=== PATIENT | male | born 1955 | race Caucasian/White ===

== ENCOUNTER 2016-05-29 14:50 | Inpatient (IN) | payer MEDICAID ==
[~2016-05-29] VITALS: Ht 180.3 cm; Wt 73.0 kg
[2016-05-29] VITALS (244 sets, daily range): BP systolic 100–122; BP diastolic 75–99; PULSE 89–118; TEMP 96.7–97; O2SAT 90–100
[~2016-05-29 14:50] MED LIST: 00186-0372-20 IH; AMOXICILLIN 8751 TAB PO; ASPIRIN 81M81 MG/TA2 PO; ASPIRIN E.C. 8181 MG PO; COLACE 100100 MG/CAP PO; CORDARONE200 MG/TAB PO; COREG 3.123.125 MG/T PO; DULCOLAX10 MG RC; FLOVENT 110MCG7.9 GM IH; IPRATROPIUM BROM3 M1 IH; LIPITOR20 MG PO; NICODERM C21 MG/PATC TOP; PERFOROMIS20 MCG/2 M IH; PLAVIX 75MG TAB75 MG PO; PREDNISONE20 MG PO; PRINIVIL10 MG PO; PROAIR HFA0.09 MG/AC IH; PROVENTIL0.09 MG/A1 IH; RT SPIRIVA18 MCG IH; SENOKOT8.6 MG PO; THEO-DUR 3300 MG/TAB PO; TYLENOL 325MG325 MG PO; VENTOLIN0.09 MG IH; XANAX 0.5MG0.5 MG PO; ZESTRIL 5MG5 MG PO; [UNRECOGNIZED DRUG - OTHER]
[2016-05-29 15:15] LABS: BASO # 0.1 (0.0-0.2); BASO % 0.3 % (0.0-2.0); GRAN % 87.2 % (42.2-75.2); HEMATOCRIT 46.5 % (42.0-52.0); HEMOGLOBIN 15.4 g/dl (13.5-18.0); LYMPH # 0.7 (1.2-3.4); LYMPH % 3.7 % (20.0-51.0); MEAN CELL VOLUME 93 fl (80.0-100.0); MEAN CORPUSCULAR HEMOGLOBIN 31 pg (27.0-31.0); MEAN CORPUSCULAR HGB CONC 33 g/dl (33.0-37.0); MEAN PLATELET VOLUME 10.2 fl (7.4-10.4); MONO # 1.6 (0.1-0.6); MONO % 8.3 % (1.7-9.3); PLATELET COUNT 192 K/mm3 (130-400); RED BLOOD COUNT 5.01 M/mm3 (4.20-5.60); REDCELL DISTRIBUTION WIDTH-CV 13.2 % (11.5-14.5); WHITE BLOOD COUNT 19.5 K/mm3 (4.8-10.8)
[2016-05-29 15:20] LABS: INR 1.2 (0.8-3.0); PROTHROMBIN TIME 13.3 SECONDS (9.7-12.8)
[2016-05-29 15:22] LABS: PARTIAL THROMBOPLASTIN TIME 36.8 SECONDS (26.0-37.0)
[2016-05-29 15:29] LABS: ADJUSTED CALCIUM 8.9 mg/dL (8.4-10.2); ALANINE AMINOTRANSFERASE 32 U/L (21-72); ALBUMIN 4.8 gm/dL (3.5-5.0); ALKALINE PHOSPHATASE 84 U/L (50-136); ANION GAP 15 mmol/L (7-16); BILIRUBIN,TOTAL 1.4 mg/dL (0.0-1.0); BLOOD UREA NITROGEN 8 mg/dL (9-20); CALCIUM 9.5 mg/dL (8.4-10.2); CARBON DIOXIDE 30 mmol/L (22-30); CHLORIDE 96 mmol/L (98-107); GLUCOSE 188 mg/dL (74-106); POTASSIUM 4.1 mmol/L (3.4-5.0); SODIUM 140 mmol/L (137-145); TOTAL PROTEIN 7.9 gm/dL (6.4-8.2)
[2016-05-29 15:39] LABS: B-TYPE NATRIURETIC PEPTIDE 840 pg/mL (0-125); TROPONIN-I < 0.012 ng/mL (0.000-0.034)
[2016-05-29] MEDS ORDERED: ZOLOFT 50MG50 MG PO (15:42)
[2016-05-29] MEDS ORDERED: PREDNISONE20 MG PO (15:46)
[2016-05-29] MEDS ORDERED: DOXYCYCLINE 10100 MG PO (15:47)
[2016-05-29 16:27] LABS: ARTERIAL BLD GAS O2 SATURATION 97.2 % (92-100); ARTERIAL BLD GAS TCO2 CT 31.5; ARTERIAL BLOOD GAS BASE EXCESS -1.8 (-2-2); ARTERIAL BLOOD GAS HCO3 29.1 meq/L (22-26); ARTERIAL BLOOD GAS pH 7.18 (7.35-7.45); OXYHEMOGLOBIN 95.4 %
[2016-05-29 16:28] LABS: ATS? YES
[2016-05-29 16:45] LABS: ARTERIAL BLD GAS O2 SATURATION 98.9 % (92-100); ARTERIAL BLD GAS TCO2 CT 37.5; ARTERIAL BLOOD GAS BASE EXCESS -0.5 (-2-2); ARTERIAL BLOOD GAS HCO3 33.9 meq/L (22-26); OXYHEMOGLOBIN 97.1 %
[2016-05-29 16:46] LABS: ARTERIAL BLOOD GAS pH 7.08 (7.35-7.45)
[2016-05-29 16:47] LABS: ARTERIAL BLOOD GAS PHT 7.08 C (7.35-7.45); ARTERIAL BLOOD GAS PO2 234.9 mmHg (80-100); ARTERIAL BLOOD GAS PO2T 234.9 (80-100); ATS? YES
[2016-05-29 19:06] LABS: ARTERIAL BLOOD GAS BASE EXCESS 1.1 (-2-2); ARTERIAL BLOOD GAS HCO3 29.1 meq/L (22-26); OXYHEMOGLOBIN 96.4 %
[2016-05-29 19:07] LABS: ALLEN TEST YES; ALLENS TEST RESULT PASS; ATS? YES
[2016-05-29] MEDS ORDERED: ALBUTEROL0.83 MG/ML IH (20:16)
[2016-05-29] MEDS ORDERED: XANAX 1MG1 MG PO (20:20)
[2016-05-29 22:15] LABS: ARTERIAL BLD GAS O2 SATURATION 98.1 % (92-100); ARTERIAL BLD GAS TCO2 CT 29.1; ARTERIAL BLOOD GAS BASE EXCESS -0.4 (-2-2); ARTERIAL BLOOD GAS HCO3 27.3 meq/L (22-26); OXYHEMOGLOBIN 96.8 %
[2016-05-29 22:17] LABS: ALLEN TEST YES; ALLENS TEST RESULT PASS; ATS? YES
[2016-05-30] VITALS (1049 sets, daily range): BP systolic 82–102; BP diastolic 58–73; PULSE 66–91; TEMP 97.5–98.6; O2SAT 84–100
[2016-05-30 05:09] LABS: ARTERIAL BLD GAS O2 SATURATION 97.2 % (92-100); ARTERIAL BLD GAS TCO2 CT 29.9; ARTERIAL BLOOD GAS BASE EXCESS 0.9 (-2-2); ARTERIAL BLOOD GAS HCO3 28.2 meq/L (22-26); ARTERIAL BLOOD GAS PHT 7.31 C (7.35-7.45); ARTERIAL BLOOD GAS PO2 103.7 mmHg (80-100); ARTERIAL BLOOD GAS PO2T 103.7 (80-100); ARTERIAL BLOOD GAS pH 7.31 (7.35-7.45); OXYHEMOGLOBIN 96.5 %
[2016-05-30 05:11] LABS: ALLEN TEST YES; ALLENS TEST RESULT PASS; ATS? YES
[2016-05-30 07:01] LABS: BASO % 0.1 % (0.0-2.0); GRAN # 7.3 (1.4-6.5); GRAN % 91.4 % (42.2-75.2); LYMPH # 0.4 (1.2-3.4); LYMPH % 5.4 % (20.0-51.0); MEAN CELL VOLUME 95 fl (80.0-100.0); MEAN CORPUSCULAR HEMOGLOBIN 30 pg (27.0-31.0); MEAN CORPUSCULAR HGB CONC 32 g/dl (33.0-37.0); MEAN PLATELET VOLUME 9.9 fl (7.4-10.4); MONO # 0.2 (0.1-0.6); MONO % 2.7 % (1.7-9.3); PLATELET COUNT 131 K/mm3 (130-400); RED BLOOD COUNT 3.91 M/mm3 (4.20-5.60); REDCELL DISTRIBUTION WIDTH-CV 13.3 % (11.5-14.5)
[2016-05-30 07:06] LABS: HEMOGLOBIN 11.8 g/dl (13.5-18.0)
[2016-05-30 07:07] LABS: CALCIUM 8.4 mg/dL (8.4-10.2); CREATININE, serum 0.45 mg/dL (0.66-1.25); POTASSIUM 4.2 mmol/L (3.4-5.0)
[2016-05-30 12:41] LABS: ADD PATHOLOGY DIFF REVIEW NO
[2016-05-30 12:43] LABS: BAND 15 % (0-10); NEUTROPHILS 81 % (42.0-75.2); PLATELET ESTIMATE NORMAL (NORMAL); TOTAL CELLS COUNTED 100
[2016-05-31] VITALS (1017 sets, daily range): BP systolic 100–116; BP diastolic 57–87; PULSE 84–144; TEMP 97–98.6; O2SAT 86–100
[2016-05-31 05:08] LABS: ARTERIAL BLD GAS TCO2 CT 29.8; ARTERIAL BLOOD GAS BASE EXCESS 3.2 (-2-2); ARTERIAL BLOOD GAS HCO3 28.4 meq/L (22-26); ARTERIAL BLOOD GAS PHT 7.41 C (7.35-7.45); ARTERIAL BLOOD GAS PO2 96.6 mmHg (80-100); ARTERIAL BLOOD GAS PO2T 96.6 (80-100); ARTERIAL BLOOD GAS pH 7.41 (7.35-7.45); OXYHEMOGLOBIN 96.4 %
[2016-05-31 05:09] LABS: ALLEN TEST YES; ALLENS TEST RESULT PASS; ATS? YES
[2016-05-31 06:30] LABS: GRAN # 8.2 (1.4-6.5); GRAN % 92.3 % (42.2-75.2); HEMOGLOBIN 12.4 g/dl (13.5-18.0); LYMPH # 0.3 (1.2-3.4); LYMPH % 3.8 % (20.0-51.0); MEAN CELL VOLUME 93 fl (80.0-100.0); MEAN CORPUSCULAR HEMOGLOBIN 30 pg (27.0-31.0); MEAN CORPUSCULAR HGB CONC 33 g/dl (33.0-37.0); MONO # 0.3 (0.1-0.6); MONO % 3.3 % (1.7-9.3); PLATELET COUNT 142 K/mm3 (130-400); RED BLOOD COUNT 4.11 M/mm3 (4.20-5.60); REDCELL DISTRIBUTION WIDTH-CV 13.2 % (11.5-14.5); WHITE BLOOD COUNT 8.8 K/mm3 (4.8-10.8)
[2016-05-31 06:40] LABS: CALCIUM 8.6 mg/dL (8.4-10.2); CREATININE, serum 0.44 mg/dL (0.66-1.25); POTASSIUM 3.8 mmol/L (3.4-5.0)
[2016-06-01] VITALS (665 sets, daily range): BP systolic 98–138; BP diastolic 55–94; PULSE 66–90; TEMP 97.8–98.5; O2SAT 87–100
[2016-06-01 05:42] LABS: GRAN % 91.4 % (42.2-75.2); LYMPH # 0.3 (1.2-3.4); LYMPH % 4.4 % (20.0-51.0); MEAN CELL VOLUME 92 fl (80.0-100.0); MEAN CORPUSCULAR HGB CONC 33 g/dl (33.0-37.0); MEAN PLATELET VOLUME 9.8 fl (7.4-10.4); MONO # 0.3 (0.1-0.6); MONO % 3.8 % (1.7-9.3); PLATELET COUNT 133 K/mm3 (130-400); RED BLOOD COUNT 3.89 M/mm3 (4.20-5.60); REDCELL DISTRIBUTION WIDTH-CV 13.2 % (11.5-14.5); WHITE BLOOD COUNT 7.7 K/mm3 (4.8-10.8)
[2016-06-01 05:43] LABS: HEMATOCRIT 35.7 % (42.0-52.0); HEMOGLOBIN 11.9 g/dl (13.5-18.0); MEAN CORPUSCULAR HEMOGLOBIN 31 pg (27.0-31.0)
[2016-06-01 05:55] LABS: CALCIUM 8.3 mg/dL (8.4-10.2); CREATININE, serum 0.43 mg/dL (0.66-1.25); POTASSIUM 3.7 mmol/L (3.4-5.0)
[2016-06-02 04:33] VITALS: BP 91/65; PULSE 63; TEMP 98.7
[2016-06-02 07:32] VITALS: BP 96/64; PULSE 62; TEMP 97.5
[2016-06-02 08:26] LABS: ALBUMIN 2.9 gm/dL (3.5-5.0); BILIRUBIN,TOTAL 0.5 mg/dL (0.0-1.0); TOTAL PROTEIN 5.1 gm/dL (6.4-8.2)
[2016-06-02 08:41] LABS: BILIRUBIN,DIRECT 0.5 mg/dL (0.0-0.4)
[2016-06-02 08:52] LABS: THYROID STIMULATING HORMONE 0.136 uIU/mL (0.465-4.680)
[2016-06-02 11:24] LABS: ARTERIAL BLD GAS O2 SATURATION 95.1 % (92-100); ARTERIAL BLD GAS TCO2 CT 33.8; ARTERIAL BLOOD GAS BASE EXCESS 6.6 (-2-2); ARTERIAL BLOOD GAS HCO3 32.3 meq/L (22-26); ARTERIAL BLOOD GAS PHT 7.43 C (7.35-7.45); ARTERIAL BLOOD GAS PO2 80.7 mmHg (80-100); ARTERIAL BLOOD GAS PO2T 80.7 (80-100); ARTERIAL BLOOD GAS pH 7.43 (7.35-7.45); OXYHEMOGLOBIN 93.9 %
[2016-06-02 11:25] LABS: ALLEN TEST YES; ALLENS TEST RESULT PASS; ATS? YES
[2016-06-02 12:08] VITALS: BP 112/75; PULSE 82; TEMP 98
[2016-06-02] MEDS ORDERED: MUCINEX 60600 MG/TA1 PO (14:57)
[2016-06-02] MEDS ORDERED: LEVAQUIN 750MG750 M1 PO (14:57)
[2016-06-02] MEDS ORDERED: PREDNISONE20 MG PO (14:57)
[2016-06-02] MEDS ORDERED: PACERONE400 MG PO (15:34)
[2016-06-02 15:55] VITALS: BP 141/90; PULSE 77; TEMP 98.2
== END 2016-06-02 18:49 | disposition home or self-care (01) | DRG 189 ==
LOC: COL.ER 14:50 → ICU 17:13 → MEDICAL 06-01 22:23
PROVIDERS: Emergency Medicine; Family Medicine; Internal Medicine Cardiovascular Disease; Internal Medicine Pulmonary Disease
DX: J96.02 Acute respiratory failure with hypercapnia (principal); J18.9 Pneumonia, unspecified organism; J44.1 Chronic obstructive pulmonary disease with (acute) exacerbation; F10.239 Alcohol dependence with withdrawal, unspecified; I10 Essential (primary) hypertension; F41.9 Anxiety disorder, unspecified; I48.0 Paroxysmal atrial fibrillation; I35.0 Nonrheumatic aortic (valve) stenosis
CPT/HCPCS: 99223-AI; 99232-AI; 99233-AI; 99239; J0282; J0456; J0696; J0713; J1650; J1956; J2060; J2270; J2405; J2920; J2930; J7030; J7050; J7060

== ENCOUNTER 2016-07-18 08:33 | Day surgery (SDC) | payer MEDICAID ==
[~2016-07-18] VITALS: Ht 180.3 cm; Wt 68.0 kg
[2016-07-18] VITALS (11 sets, daily range): BP systolic 113–150; BP diastolic 63–96; PULSE 53–72; TEMP 98
[~2016-07-18 08:33] MED LIST changes: +ALBUTEROL0.83 MG/ML IH; +DOXYCYCLINE 10100 MG PO; +LEVAQUIN 750MG750 M1 PO; +MUCINEX 60600 MG/TA1 PO; +PACERONE400 MG PO; +XANAX 1MG1 MG PO; +ZOLOFT 50MG50 MG PO
[2016-07-18] MEDS ORDERED: MUCINEX 60600 MG/TA1 PO (09:07)
[2016-07-18 09:29] LABS: HEMATOCRIT 42.7 % (42.0-52.0); MEAN CELL VOLUME 93 fl (80.0-100.0); MEAN CORPUSCULAR HEMOGLOBIN 30 pg (27.0-31.0); MEAN CORPUSCULAR HGB CONC 33 g/dl (33.0-37.0); MEAN PLATELET VOLUME 9.9 fl (7.4-10.4); PLATELET COUNT 162 K/mm3 (130-400); RED BLOOD COUNT 4.61 M/mm3 (4.20-5.60); REDCELL DISTRIBUTION WIDTH-CV 13.7 % (11.5-14.5); WHITE BLOOD COUNT 6.1 K/mm3 (4.8-10.8)
[2016-07-18 09:31] LABS: PROTHROMBIN TIME 11.5 SECONDS (9.7-12.8)
[2016-07-18 09:43] LABS: ADJUSTED CALCIUM 8.9 mg/dL (8.4-10.2); ALBUMIN 3.8 gm/dL (3.5-5.0); BILIRUBIN,TOTAL 0.8 mg/dL (0.0-1.0); CALCIUM 8.7 mg/dL (8.4-10.2); CREATININE, serum 0.55 mg/dL (0.66-1.25); TOTAL PROTEIN 6.5 gm/dL (6.4-8.2)
== END 2016-07-18 16:30 | disposition home or self-care (01) ==
LOC: EUO 08:33
PROVIDERS: Internal Medicine Cardiovascular Disease
DX: I08.0 Rheumatic disorders of both mitral and aortic valves (principal); I77.810 Thoracic aortic ectasia
CPT/HCPCS: C1725; C1760; C1769; J2250; J2704; J3010; J7120; Q9967

== ENCOUNTER → 2016-09-21 | Outpatient (CLI) | payer MEDICAID | LOC: COL.PUL 11:23 | DX: I35.0 Nonrheumatic aortic (valve) stenosis (principal); I77.810 Thoracic aortic ectasia; J44.9 Chronic obstructive pulmonary disease, unspecified; I48.0 Paroxysmal atrial fibrillation ==

== ENCOUNTER → 2017-10-29 | Outpatient (CLI) | payer MEDICAID | LOC: COL.RAD 10:22 | DX: K43.9 Ventral hernia without obstruction or gangrene (principal); M62.08 Separation of muscle (nontraumatic), other site; N32.3 Diverticulum of bladder; K80.20 Calculus of gallbladder without cholecystitis without obstruction; E27.9 Disorder of adrenal gland, unspecified | CPT/HCPCS: Q9967 ==

== ENCOUNTER → 2017-11-09 | Outpatient (CLI) | payer MEDICAID | LOC: COL.RAD 16:07 | DX: R06.02 Shortness of breath (principal); R05 Cough; R09.89 Other specified symptoms and signs involving the circulatory and respiratory systems; Z95.4 Presence of other heart-valve replacement; Z95.0 Presence of cardiac pacemaker ==

== ENCOUNTER → 2023-08-31 | Outpatient (CLI) | payer MEDICARE ==
[~2023-08-31] MED LIST changes: +00186-0370-20 IH; -00186-0372-20 IH; +ATARAX 25MG25 MG/TAB PO; +DALIRESP500 MCG PO; +DOXYCYCLINE HY100 MG PO; +LASIX 40MG TABL40 MG PO; +MEDROL 4MG DOSPA4 MG PO; +PEPCID 20MG TAB20 MG PO; +SINGULAIR 110 MG/TAB PO; -VENTOLIN0.09 MG IH; -XANAX 1MG1 MG PO; +XANAX XR3 MG PO; +ZOLOFT 100MG100 MG PO; -ZOLOFT 50MG50 MG PO
== END ==
LOC: COL.RAD 14:52
DX: J98.11 Atelectasis (principal); J43.9 Emphysema, unspecified